=== PATIENT | male | born 1965 | race Two or more races ===

== ENCOUNTER 2018-05-15 18:08 | Inpatient (IN) | payer MEDICARE, OTHER ==
[~2018-05-15] VITALS: Ht 175.3 cm; Wt 113.4 kg
--- NOTE | 2018-05-15 18:16 | NUR ---
Dr Velasco at the bedside for MSE.
[2018-05-15] MEDS ORDERED: CALC-20 PO (18:23)
[2018-05-15] MEDS ORDERED: OMEG1CAP PO (18:23)
[2018-05-15] MEDS ORDERED: FENO145T PO (18:23)
[2018-05-15] MEDS ORDERED: GLYB5TAB7 PO (18:23)
[2018-05-15] MEDS ORDERED: DIVA500T2 PO (18:23)
[2018-05-15] MEDS ORDERED: SITA100T PO (18:23)
[2018-05-15] MEDS ORDERED: AMLO10TA4 PO (18:23)
[2018-05-15] MEDS ORDERED: OLAN20TA3 PO (18:23)
[2018-05-15] MEDS ORDERED: DOCU-141 PO (18:23)
[2018-05-15] MEDS ORDERED: TRAZ-214 PO (18:23)
[2018-05-15] MEDS ORDERED: LOSA25TA3 PO (18:23)
[2018-05-15] MEDS ORDERED: QUET200T PO (18:23)
[2018-05-15 18:39] LABS: *BILIRUBIN,URIN NEGATIVE (NEGATIVE); *BLOOD, URINE NEGATIVE (NEGATIVE); *CLARITY,URINE CLEAR (CLEAR); *COLOR,URINE LIGHT YELLOW (YELLOW); *KETONES,URINE NEGATIVE (NEGATIVE); *PROTEIN,URINE NEGATIVE (NEGATIVE); *UROBILINOGEN,URINE 0.2 E.U./dl (NORMAL); BASOPHILS # (AUTO) 0.1 K/uL (0.0-8.0); BASOPHILS % (AUTO) 1.2 % (0.0-2.0); EOSINOPHILS # (AUTO) 0.1 K/uL (0.0-0.7); EOSINOPHILS % (AUTO) 2.1 % (0.0-7.0); HEMATOCRIT 39.4 % (36.7-47.1); HEMOGLOBIN 13.9 g/dL (12.5-16.3); LEUKOCYTE ESTERASE ,URINE NEGATIVE (NEGATIVE); LYMPHOCYTES # (AUTO) 1.8 K/uL (20.0-40.0); LYMPHOCYTES % (AUTO) 27.3 % (20.5-51.5); MEAN CORPUSCULAR HEMOGLOBIN 31.1 uug (23.8-33.4); MEAN CORPUSCULAR HGB CONC 35 g/dL (32.5-36.3); MEAN CORPUSCULAR VOLUME 88.5 fL (73.0-96.2); MONOCYTES # (AUTO) 0.6 K/uL (2.0-10.0); MONOCYTES % (AUTO) 8.5 % (0.0-11.0); NEUTROPHILS % (AUTO) 60.9 % (38.5-71.5); NITRITE, URINE NEGATIVE (NEGATIVE); PLATELET COUNT (AUTO) 318 K/uL (152-348); RED BLOOD CELL COUNT(AUTO) 4.45 MIL/uL (4.06-5.63); UGLUCOSE NEGATIVE (NEGATIVE); WHITE BLOOD COUNT (AUTO) 6.6 K/uL (3.6-10.2)
[2018-05-15 18:47] LABS: CARBON DIOXIDE 28 mmol/L (21-32); CHLORIDE 101 mmol/L (98-107); GLUCOSE 155 mg/dL (74-106); POTASSIUM 3.4 mmol/L (3.5-5.1); SQUAMOUS EPITHELIAL CELL,UR FEW /HPF (NONE SEEN); UREA NITROGEN, BLOOD 8 mg/dL (7-18); WBC,URINE NONE SEEN /HPF (0-3)
[2018-05-15 18:52] LABS: ALANINE AMINOTRANSFERASE 29 U/L (16-63); ALKALINE PHOSPHATASE 49 U/L (50-136); ASPARTATE AMINOTRANSFERASE 10 U/L (15-37); BILIRUBIN,DIRECT < 0.1 mg/dL (0.0-0.2); BILIRUBIN,TOTAL 0.2 mg/dL (0.2-1.0); TOTAL PROTEIN, SERUM 8.3 g/dL (6.4-8.2)
[2018-05-15 18:53] LABS: ETHANOL < 3 MG/DL (0-0)
--- NOTE | 2018-05-15 18:53 | NUR ---
Paged Dr Garner for panel call.Awaiting call back. Pt is resting in bed, watching TV, NAD noted.
[2018-05-15 18:54] LABS: *AMPHETAMINE, URINE NEGATIVE (NEGATIVE); *BARBITURATE, URINE NEGATIVE (NEGATIVE); *CANNABINOID, URINE NEGATIVE (NEGATIVE); *COCCAINE, URINE NEGATIVE (NEGATIVE); *OPIATE, URINE NEGATIVE (NEGATIVE); *PHENCYCLIDINE SCREEN,URINE NEGATIVE (NEGATIVE)
--- NOTE | 2018-05-15 19:16 | NUR ---
Dr Terry spoke with Dr Garner.
[2018-05-15] MEDS ORDERED: MORPHINE SULFATE 2 MG/1 ML DISP.SYRIN IV PRN (19:30)
[2018-05-15] MEDS ORDERED: ONDANSETRON 4 MG/2 ML VIAL IV PRN (19:30)
[2018-05-15] MEDS ORDERED: ENALAPRILAT DIHYDRATE 1.25 MG/1 ML VIAL IV PRN (19:30)
[2018-05-15] MEDS ORDERED: ACETAMINOPHEN 325 MG TABLET PO PRN (19:30)
--- NOTE | 2018-05-15 19:48 | NUR ---
Patient refused to have MRSA narse to be done.
--- NOTE | 2018-05-15 20:00 | NUR ---
ADMITTED PATIENT IN TELE UNIT UNDER THE CARE OF DR. NASH, BELONGING LIST DONE.
--- NOTE | 2018-05-15 20:02 | NUR ---
Transfered to 2nd floor Tele via larry
[2018-05-15] MEDS ORDERED: MORPHINE SULFATE 4 MG/1 ML DISP.SYRIN IV PRN (20:15)
[2018-05-15 20:20] VITALS: BP 132/77
[2018-05-15] MEDS: TRAZODONE 100 MG TABLET PO SCH (20:54)
[2018-05-15] MEDS: DIVALPROEX 500 MG TABLET.DR PO SCH (20:55)
[2018-05-15] MEDS: OLANZAPINE 5 MG TABLET PO SCH (20:55)
[2018-05-15] MEDS: CALCIUM CARB/VITAMIN D 600-400 MG TABLET PO SCH (20:55)
[2018-05-15] MEDS ORDERED: QUETIAPINE FUMARATE 200 MG TABLET PO SCH (21:00)
--- NOTE | 2018-05-15 23:19 | NUR ---
PATIENT REFUSED TELE MONITOR AND PULLED OUT IV HEPLOCK, DR. NASH NOTIFIED WITH ORDER TO DISCONTINUE TELE MONITOR, AND IV HEPLOCK.
[2018-05-16 05:16] VITALS: BP 132/82
[2018-05-16] MEDS: PANTOPRAZOLE SODIUM 40 MG TABLET.DR PO SCH (06:03)
--- NOTE | 2018-05-16 06:07 | NUR ---
PATIENT SLEPT MOST OF THE NIGHT, NO SOB NO CHEST PAIN, NOTED, PATIENT REFUSED PROTONIX MEDICATIONS, REFUSED LAB WORKS ALSO, EXPLAININED THE RISK AND BENEFIT BUT STRONGLY REFUSED. PATIENT REFUSED TO EXPLAINED WHY HE DID NOT LIKE TAKING PROTONIX PO MEDICATIONS. WILL CONTINUE TO OFFER, ENDORSED TO NEXT SHIFT.
--- NOTE | 2018-05-16 07:15 | NUR ---
received report from restaurant shift supervisor nurse, patient in bed awake, no distress noted at this time, bed in low position, side rails up ;x2. bed alarm on.
[2018-05-16] MEDS ORDERED: Medication Not On Formulary EA (Calcium Carbonate/Vitamin D3 (Calcium + D 600 Mg Tablet) PO SCH (09:00)
[2018-05-16] MEDS: LINAGLIPTIN 5 MG TABLET PO SCH ×2 (09:00→09:13)
[2018-05-16] MEDS ORDERED: Medication Not On Formulary EA (Sitagliptin Phosphate (Januvia) 100 MG) PO SCH (09:00)
[2018-05-16] MEDS: DOCUSATE SODIUM 100 MG CAPSULE PO SCH ×2 (09:12→17:14)
[2018-05-16] MEDS: CALCIUM CARB/VITAMIN D 600-400 MG TABLET PO SCH ×2 (09:12→20:37)
[2018-05-16] MEDS: OMEGA-3 FATTY ACIDS/FISH OIL CAPSULE PO SCH (09:12)
[2018-05-16] MEDS: LOSARTAN POTASSIUM 25 MG TABLET PO SCH (09:13)
[2018-05-16] MEDS: DIVALPROEX 500 MG TABLET.DR PO SCH ×2 (09:13→20:37)
[2018-05-16] MEDS: OLANZAPINE 5 MG TABLET PO SCH ×2 (09:13→20:37)
[2018-05-16] MEDS: FENOFIBRATE NANOCRYSTALLIZED 145 MG TABLET PO SCH (09:13)
[2018-05-16] MEDS: glyBURIDE 5 MG TABLET PO SCH ×2 (09:13→17:00)
[2018-05-16] MEDS: AMLODIPINE 10 MG TABLET PO SCH (09:14)
[2018-05-16] MEDS ORDERED: INSULIN REGULAR, HUMAN 300 UNIT/3 ML VIAL SQ PRN (10:45)
[2018-05-16] MEDS ORDERED: DEXTROSE 50% 50 ML DISP.SYRIN IV PRN (10:45)
[2018-05-16 11:36] VITALS: BP 134/82
[2018-05-16] MEDS: BLOOD SUGAR DIAGNOSTIC 1 EACH STRIP VI SCH ×3 (12:15→20:54)
[2018-05-16 15:06] LABS: BASOPHILS % (AUTO) 0.8 % (0.0-2.0); EOSINOPHILS # (AUTO) 0.1 K/uL (0.0-0.7); EOSINOPHILS % (AUTO) 2.2 % (0.0-7.0); HEMATOCRIT 39.2 % (36.7-47.1); HEMOGLOBIN 13.6 g/dL (12.5-16.3); LYMPHOCYTES # (AUTO) 1.9 K/uL (20.0-40.0); LYMPHOCYTES % (AUTO) 30.1 % (20.5-51.5); MEAN CORPUSCULAR HEMOGLOBIN 30.5 uug (23.8-33.4); MEAN CORPUSCULAR HGB CONC 35 g/dL (32.5-36.3); MEAN CORPUSCULAR VOLUME 88.4 fL (73.0-96.2); MONOCYTES # (AUTO) 0.5 K/uL (2.0-10.0); MONOCYTES % (AUTO) 8.6 % (0.0-11.0); NEUTROPHILS # (AUTO) 3.7 K/uL (1.8-8.9); NEUTROPHILS % (AUTO) 58.3 % (38.5-71.5); PLATELET COUNT (AUTO) 309 K/uL (152-348); RED BLOOD CELL COUNT(AUTO) 4.44 MIL/uL (4.06-5.63); WHITE BLOOD COUNT (AUTO) 6.3 K/uL (3.6-10.2)
[2018-05-16 15:24] LABS: BILIRUBIN,TOTAL 0.3 mg/dL (0.2-1.0); MAGNESIUM 2.1 mg/dL (1.8-2.4); PHOSPHOROUS 3.5 mg/dL (2.5-4.9); POTASSIUM 3.7 mmol/L (3.5-5.1); TOTAL PROTEIN, SERUM 8.3 g/dL (6.4-8.2)
[2018-05-16 16:00] VITALS: BP 130/78
[2018-05-16] MEDS: METFORMIN HCL 500 MG TABLET PO SCH (17:15)
--- NOTE | 2018-05-16 17:57 | NUR ---
Patient has been uncooperative with care, refuses to take medication, ct scan and labs. Patient continues to have delusional thoughts and refuses to accept that he has diabetes, and does not want to take his medications. Patient states that his "People" have been notified and they are coming to pick him up. 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 Currently patient is up in the chair at bedside. No distress noted.
[2018-05-16 19:15] VITALS: BP 131/88
--- NOTE | 2018-05-16 19:40 | NUR ---
RECEIVED PATIENT IN BED ALERT, ORIENTED, NO COMPLAIN OF PAIN NOR DISCOMFORT, REPORTED BY AM NURSE THAT PATIENT STILL DELUSIONAL, UNCOOPERATIVE WITH CARE, REFUSED LAB WORKS, STAY IN HIS ROOM, WILL CONTINUE TO MONITOR.
[2018-05-16] MEDS: QUETIAPINE FUMARATE 200 MG TABLET PO SCH (20:38)
[2018-05-16] MEDS: TRAZODONE 100 MG TABLET PO SCH (20:48)
--- NOTE | 2018-05-16 21:00 | NUR ---
PATIENT AWAKE, TOOK ALL PO MEDS, ALLOWED TO DO ACCUCHECK, BUT REFUSED REGULAR INSULIN COVERAGE , EXPLAINED THE RISK AND BENEFITS OF NOT TAKING INSULIN, CONTINUE TO MONITOR. ,
[2018-05-17 03:20] VITALS: BP 116/76
[2018-05-17] MEDS: PANTOPRAZOLE SODIUM 40 MG TABLET.DR PO SCH (06:09)
[2018-05-17] MEDS: BLOOD SUGAR DIAGNOSTIC 1 EACH STRIP VI SCH ×4 (06:09→21:29)
[2018-05-17 06:49] LABS: BASOPHILS # (AUTO) 0.1 K/uL (0.0-8.0); EOSINOPHILS # (AUTO) 0.2 K/uL (0.0-0.7); EOSINOPHILS % (AUTO) 3.2 % (0.0-7.0); HEMATOCRIT 39.4 % (36.7-47.1); HEMOGLOBIN 13.6 g/dL (12.5-16.3); LYMPHOCYTES # (AUTO) 2.1 K/uL (20.0-40.0); MEAN CORPUSCULAR HEMOGLOBIN 30.7 uug (23.8-33.4); MEAN CORPUSCULAR HGB CONC 35 g/dL (32.5-36.3); MEAN CORPUSCULAR VOLUME 89.2 fL (73.0-96.2); MONOCYTES # (AUTO) 0.5 K/uL (2.0-10.0); MONOCYTES % (AUTO) 8.4 % (0.0-11.0); NEUTROPHILS # (AUTO) 3.3 K/uL (1.8-8.9); NEUTROPHILS % (AUTO) 53.4 % (38.5-71.5); PLATELET COUNT (AUTO) 316 K/uL (152-348); RED BLOOD CELL COUNT(AUTO) 4.42 MIL/uL (4.06-5.63); WHITE BLOOD COUNT (AUTO) 6.2 K/uL (3.6-10.2)
[2018-05-17 06:58] LABS: BILIRUBIN,TOTAL 0.3 mg/dL (0.2-1.0); CREATININE 1.2 mg/dL (0.6-1.3); MAGNESIUM 2.1 mg/dL (1.8-2.4); POTASSIUM 4.1 mmol/L (3.5-5.1); TOTAL PROTEIN, SERUM 7.9 g/dL (6.4-8.2)
[2018-05-17] MEDS: CALCIUM CARB/VITAMIN D 600-400 MG TABLET PO SCH ×2 (08:03→21:23)
[2018-05-17] MEDS: glyBURIDE 5 MG TABLET PO SCH ×2 (08:03→16:46)
[2018-05-17] MEDS: FENOFIBRATE NANOCRYSTALLIZED 145 MG TABLET PO SCH (08:03)
[2018-05-17] MEDS: METFORMIN HCL 500 MG TABLET PO SCH ×2 (08:03→17:29)
[2018-05-17] MEDS: DIVALPROEX 500 MG TABLET.DR PO SCH ×2 (08:03→21:23)
[2018-05-17] MEDS: OMEGA-3 FATTY ACIDS/FISH OIL CAPSULE PO SCH (08:03)
[2018-05-17] MEDS: LINAGLIPTIN 5 MG TABLET PO SCH (08:04)
[2018-05-17] MEDS: AMLODIPINE 10 MG TABLET PO SCH (08:04)
[2018-05-17] MEDS: DOCUSATE SODIUM 100 MG CAPSULE PO SCH ×2 (08:04→16:46)
[2018-05-17] MEDS: LOSARTAN POTASSIUM 25 MG TABLET PO SCH (08:04)
[2018-05-17] MEDS: OLANZAPINE 5 MG TABLET PO SCH ×2 (08:05→21:23)
[2018-05-17 09:00] LABS: THYROID STIMULATING HORMONE 0.347 mIU/mL (0.358-3.740)
--- NOTE | 2018-05-17 09:54 | NUR ---
SEEN BY DR MORENO SEE NOTES
--- NOTE | 2018-05-17 09:55 | NUR ---
RECEIVED PATIENT SITTING ON CHAIR WATCHING TV, ANSWERING QUESTIONS APPROPRIATELY, NO SS OF HALLUCINATION OR DELIRIUM. TOOK MEDS WILLINGLY ATE 100% OF BREAKFAST. CLOSELY MONITORED Addendum: 05/17/18 at 1001 by MARGARET MORRISON RN ERROR; NOTES FROM 08 CHANGE OF SHIFT
--- NOTE | 2018-05-17 11:18 | NUR ---
BLOOD SUGAR BY ACCUCHEK 177 PATIENT REFUSED INSULIN SLIDING SCALE
[2018-05-17 11:20] VITALS: BP 129/80
[2018-05-17 15:56] VITALS: BP 122/79
[2018-05-17 19:00] VITALS: BP 131/83
--- NOTE | 2018-05-17 19:30 | NUR ---
Patient received in stable condition at start of shift. No acute distress. Vital signs within range at beginning of shift. Pertinent assessment completed. Patient is alert, awake, verbally responsive, noted to be anxious & irritable. Affect is labile. Patient also appears disheveled. Sitting at the bedside on chair upon assessment & talking to his shoe & stating, "I'm talking to my daughter on the phone". Room checked for safety at start of shift. Bed placed in low position, locked, x2 side rails up. Call light in reach. Will continue to monitor through shift.
[2018-05-17] MEDS: QUETIAPINE FUMARATE 200 MG TABLET PO SCH (21:23)
[2018-05-17] MEDS: TRAZODONE 100 MG TABLET PO SCH (21:23)
[2018-05-18 04:00] VITALS: BP 115/74
[2018-05-18] MEDS: PANTOPRAZOLE SODIUM 40 MG TABLET.DR PO SCH (06:12)
--- NOTE | 2018-05-18 06:15 | NUR ---
Patient slept well during the shift. Vital signs within normal limits. No agitation noted during the night. Patient remained cooperative & took all medications as ordered. Refuses insulin this AM. Explained risks & benefits. Blood sugar at 141. No signs of hyperglycemia noted. All needs attended to. Safety measures implemented. Call light within reach. Will endorse to oncoming shift.
[2018-05-18] MEDS: BLOOD SUGAR DIAGNOSTIC 1 EACH STRIP VI SCH ×2 (06:33→11:56)
[2018-05-18 06:47] LABS: BASOPHILS # (AUTO) 0.1 K/uL (0.0-8.0); BASOPHILS % (AUTO) 0.9 % (0.0-2.0); EOSINOPHILS # (AUTO) 0.2 K/uL (0.0-0.7); HEMATOCRIT 38.2 % (36.7-47.1); HEMOGLOBIN 13.3 g/dL (12.5-16.3); LYMPHOCYTES % (AUTO) 29.9 % (20.5-51.5); MEAN CORPUSCULAR HEMOGLOBIN 30.5 uug (23.8-33.4); MEAN CORPUSCULAR HGB CONC 35 g/dL (32.5-36.3); MEAN CORPUSCULAR VOLUME 87.7 fL (73.0-96.2); MONOCYTES # (AUTO) 0.5 K/uL (2.0-10.0); MONOCYTES % (AUTO) 7.5 % (0.0-11.0); NEUTROPHILS # (AUTO) 3.8 K/uL (1.8-8.9); NEUTROPHILS % (AUTO) 58.7 % (38.5-71.5); PLATELET COUNT (AUTO) 304 K/uL (152-348); RED BLOOD CELL COUNT(AUTO) 4.35 MIL/uL (4.06-5.63); WHITE BLOOD COUNT (AUTO) 6.6 K/uL (3.6-10.2)
[2018-05-18 06:55] LABS: CREATININE 1.1 mg/dL (0.6-1.3); MAGNESIUM 2.1 mg/dL (1.8-2.4); PHOSPHOROUS 3.6 mg/dL (2.5-4.9); POTASSIUM 3.7 mmol/L (3.5-5.1)
[2018-05-18] MEDS: METFORMIN HCL 500 MG TABLET PO SCH (08:09)
[2018-05-18] MEDS: DOCUSATE SODIUM 100 MG CAPSULE PO SCH ×2 (08:09→08:13)
[2018-05-18] MEDS: CALCIUM CARB/VITAMIN D 600-400 MG TABLET PO SCH (08:09)
[2018-05-18] MEDS: LINAGLIPTIN 5 MG TABLET PO SCH (08:10)
[2018-05-18] MEDS: OMEGA-3 FATTY ACIDS/FISH OIL CAPSULE PO SCH (08:10)
[2018-05-18] MEDS: glyBURIDE 5 MG TABLET PO SCH (08:10)
[2018-05-18] MEDS: LOSARTAN POTASSIUM 25 MG TABLET PO SCH (08:10)
[2018-05-18] MEDS: DIVALPROEX 500 MG TABLET.DR PO SCH (08:10)
[2018-05-18] MEDS: AMLODIPINE 10 MG TABLET PO SCH (08:10)
[2018-05-18] MEDS: FENOFIBRATE NANOCRYSTALLIZED 145 MG TABLET PO SCH (08:11)
[2018-05-18] MEDS: OLANZAPINE 5 MG TABLET PO SCH (08:11)
[2018-05-18 11:22] VITALS: BP 121/72
[2018-05-18] MEDS ORDERED: INSU100V28 SQ (14:48)
[2018-05-18] MEDS ORDERED: PANT40TA2 PO (14:48)
[2018-05-18] MEDS ORDERED: LINA5TAB PO (14:48)
[2018-05-18] MEDS ORDERED: METF-440 PO (14:48)
[2018-05-18] MEDS ORDERED: GLYB5TAB7 PO (14:48)
[2018-05-18] MEDS ORDERED: Blood Sugar Diagnostic VI (14:48)
[2018-05-18] MEDS ORDERED: ACET325T53 PO (14:48)
[2018-05-18] MEDS ORDERED: OLAN5TAB3 PO (14:48)
[2018-05-18] MEDS ORDERED: HYDR-3326 PO (14:48)
[2018-05-18] MEDS ORDERED: DEXT50DI8 IV (14:48)
[2018-05-18] MEDS ORDERED: QUET200T PO (14:48)
[2018-05-18 15:34] VITALS: BP 121/73
--- NOTE | 2018-05-18 16:22 | NUR ---
TRANSFER TO [facility]
[2018-05-19] MEDS ORDERED: DIVA500T2 PO (09:28)
[2018-05-19] MEDS ORDERED: TRAZ300T2 PO (09:28)
== END 2018-05-18 16:30 | DRG 885 ==
LOC: ER 18:10 → TELE 19:49 → MED 23:27
PROVIDERS: ADMIT Internal Medicine; ATTEND Internal Medicine
DX: F25.0 Schizoaffective disorder, bipolar type (principal); E11.65 Type 2 diabetes mellitus with hyperglycemia; E87.6 Hypokalemia; Z91.14 Patient's other noncompliance with medication regimen; Z79.84 Long term (current) use of oral hypoglycemic drugs; E66.9 Obesity, unspecified; Z68.36 Body mass index [BMI] 36.0-36.9, adult; I10 Essential (primary) hypertension; F17.210 Nicotine dependence, cigarettes, uncomplicated; E88.09 Other disorders of plasma-protein metabolism, not elsewhere classified; E78.5 Hyperlipidemia, unspecified; E78.1 Pure hyperglyceridemia; Z79.899 Other long term (current) drug therapy; Z88.0 Allergy status to penicillin; F41.9 Anxiety disorder, unspecified
CPT/HCPCS: 36415; 70030-TC; 80164; 80307; 83735; 84100; 84443; 84481; 85025; 93005; A4663; G0378; G0480; J1815

== ENCOUNTER 2018-05-18 17:44 | Inpatient (IN) | payer MEDICARE ==
[~2018-05-18] VITALS: Ht 175.3 cm; Wt 117.9 kg
[~2018-05-18 17:44] MED LIST: ACET325T53 PO; AMLO10TA4 PO; Blood Sugar Diagnostic VI; CALC-20 PO; DEXT50DI8 IV; DIVA500T2 PO; DOCU-141 PO; FENO145T PO; GLYB5TAB7 PO; HYDR-3326 PO; INSU100V28 SQ; LINA5TAB PO; LOSA25TA3 PO; METF-440 PO; OLAN20TA3 PO; OLAN5TAB3 PO; OMEG1CAP PO; PANT40TA2 PO; QUET200T PO; SITA100T PO; TRAZ-214 PO
[2018-05-18] MEDS ORDERED: TEMAZEPAM 7.5 MG CAPSULE PO PRN (18:00)
[2018-05-18] MEDS ORDERED: LORAZEPAM 0.5 MG TABLET PO PRN (18:00)
[2018-05-18] MEDS ORDERED: MAGNESIUM HYDROXIDE 30 ML LIQUID UDC PO PRN (18:00)
[2018-05-18] MEDS ORDERED: ACETAMINOPHEN 325 MG TABLET PO PRN (18:00)
[2018-05-18] MEDS ORDERED: MAG HYDROX/AL HYDROX/SIMETH 30 ML LIQUID UDC PO PRN (18:00)
[2018-05-18] MEDS ORDERED: HALOPERIDOL LACTATE 5 MG/1 ML VIAL IM ONE (19:15)
[2018-05-18] MEDS ORDERED: diphenhydrAMINE 50 MG/1 ML VIAL IM ONE (19:15)
[2018-05-18] MEDS ORDERED: LORAZEPAM 2 MG/1 ML VIAL IM ONE (19:15)
[2018-05-18 19:28] VITALS: BP 140/80
--- NOTE | 2018-05-18 19:30 | NUR ---
Received patient from day shift nurse. Patient was previously a Med/Surg patient and now admitted as a GPS Overflow under Dr. De Leon. Patient in stable condition with no acute distress. Vital signs within range at start of shift. Patient on a 5150 Hold starting 05/18/18 at 1337 & ending 05/21/18 at 1337. Explained to patient that he must stay on the unit because he is on a hold. Patient was refusing at first but now understands that he must stay until hold is over. Per day shift RN, refused to sign most documents & answer assessment questions. Patient denies S.I. & has no active plan upon assessment. Noted to be delusional, irritable, & anxious. Patient at the bedside sitting carrying his shoe to his face & "talking on the phone". 1:1 sitter at the bedside. Room checked for safety at start of shift. Contraband removed from room & collected. Will continue to monitor through shift.
--- NOTE | 2018-05-19 06:11 | NUR ---
Blood sugar this AM at 130. No s/s of hyperglycemia noted.
--- NOTE | 2018-05-19 06:36 | NUR ---
Patient slept well during the night total of 8.5 hours. No agitation noted. Compliant with care. 1:1 sitter at the bedside. No active S.I. All needs attended to promptly. Medications administered per MD order. Safety measures implemented. Will endorse to oncoming shift.
[2018-05-19 08:00] VITALS: BP 147/83
[2018-05-19] MEDS: DIVALPROEX 500 MG TABLET.DR PO SCH (09:00)
[2018-05-19] MEDS ORDERED: DIVA500T2 PO (09:28)
[2018-05-19] MEDS ORDERED: TRAZ300T2 PO (09:28)
[2018-05-19] MEDS ORDERED: INSULIN REGULAR, HUMAN 300 UNIT/3 ML VIAL SQ PRN (11:30)
[2018-05-19] MEDS ORDERED: DEXTROSE 50% 50 ML DISP.SYRIN IV PRN (11:30)
[2018-05-19] MEDS ORDERED: HYDROCODONE/APAP 5-325MG TABLET PO PRN (11:30)
[2018-05-19] MEDS: BLOOD SUGAR DIAGNOSTIC 1 EACH STRIP VI SCH ×3 (11:34→20:49)
[2018-05-19] MEDS: LINAGLIPTIN 5 MG TABLET PO SCH (11:50)
[2018-05-19] MEDS: LOSARTAN POTASSIUM 25 MG TABLET PO SCH (11:50)
[2018-05-19] MEDS: AMLODIPINE 10 MG TABLET PO SCH (11:50)
[2018-05-19] MEDS: FENOFIBRATE NANOCRYSTALLIZED 145 MG TABLET PO SCH (11:50)
[2018-05-19] MEDS: DOCUSATE SODIUM 100 MG CAPSULE PO SCH (16:05)
--- NOTE | 2018-05-19 16:30 | NUR ---
pt is holding his shoes near his ear and talking to him self ,pt is thinking his shoes is telephone.reorient the pt ,sitter at bed side
[2018-05-19] MEDS: glyBURIDE 5 MG TABLET PO SCH (17:00)
[2018-05-19] MEDS ORDERED: Medication Not On Formulary EA (Calcium Carbonate/Vitamin D3 (Calcium + D 600 Mg Tablet) PO SCH (17:00)
--- NOTE | 2018-05-19 18:13 | NUR ---
TRANSFER THE PT TO U VIA WHEEL CHAIR IN STABLE CONDITION
[2018-05-19 20:15] VITALS: BP 141/86
[2018-05-19] MEDS: QUETIAPINE FUMARATE 100 MG TABLET PO SCH (20:30)
[2018-05-19] MEDS: CALCIUM CARB/VITAMIN D 600-400 MG TABLET PO SCH (20:30)
[2018-05-19] MEDS: TRAZODONE 50 MG TABLET PO SCH (20:31)
[2018-05-19] MEDS ORDERED: DIVALPROEX 500 MG TABLET.DR PO SCH (21:00)
[2018-05-20] MEDS: BLOOD SUGAR DIAGNOSTIC 1 EACH STRIP VI SCH ×4 (06:31→20:47)
[2018-05-20] MEDS: PANTOPRAZOLE SODIUM 40 MG TABLET.DR PO SCH ×2 (06:32→08:19)
[2018-05-20 07:30] VITALS: BP 141/78
[2018-05-20] MEDS: glyBURIDE 5 MG TABLET PO SCH ×2 (08:00→18:00)
[2018-05-20] MEDS: OMEGA-3 FATTY ACIDS/FISH OIL CAPSULE PO SCH (08:18)
[2018-05-20] MEDS: LOSARTAN POTASSIUM 25 MG TABLET PO SCH (08:19)
[2018-05-20] MEDS: AMLODIPINE 10 MG TABLET PO SCH (08:20)
[2018-05-20] MEDS: CALCIUM CARB/VITAMIN D 600-400 MG TABLET PO SCH ×2 (08:20→20:47)
[2018-05-20] MEDS: FENOFIBRATE NANOCRYSTALLIZED 145 MG TABLET PO SCH (08:20)
[2018-05-20] MEDS: DOCUSATE SODIUM 100 MG CAPSULE PO SCH ×2 (08:20→16:27)
[2018-05-20] MEDS: LINAGLIPTIN 5 MG TABLET PO SCH (08:21)
[2018-05-20] MEDS: DIVALPROEX 500 MG TABLET.DR PO SCH ×2 (09:00→20:47)
[2018-05-20 16:03] VITALS: BP 117/69
[2018-05-20] MEDS: OLANZAPINE ZYDIS 5 MG TAB.RAPDIS PO SCH ×2 (16:07→16:29)
--- NOTE | 2018-05-20 17:58 | NUR ---
patient is paranoia and delusional responding to internal stimuli ,refused all Acc-Check , compliant with amost of medication ,will continue close monitoring.
[2018-05-20 20:00] VITALS: BP 133/80
[2018-05-20] MEDS: QUETIAPINE FUMARATE 100 MG TABLET PO SCH (20:46)
[2018-05-20] MEDS: TRAZODONE 50 MG TABLET PO SCH (20:47)
--- NOTE | 2018-05-21 06:14 | NUR ---
GPS: Remain paranoia and delusional ,noted responding to internal stimuli ,refused all Acc-Check , compliant with all medication ,will continue close monitoring.refused shower.
[2018-05-21] MEDS: BLOOD SUGAR DIAGNOSTIC 1 EACH STRIP VI SCH ×4 (06:50→20:17)
[2018-05-21 07:30] VITALS: BP 143/83
[2018-05-21] MEDS: DOCUSATE SODIUM 100 MG CAPSULE PO SCH ×2 (09:00→16:20)
[2018-05-21] MEDS: FENOFIBRATE NANOCRYSTALLIZED 145 MG TABLET PO SCH (09:24)
[2018-05-21] MEDS: LINAGLIPTIN 5 MG TABLET PO SCH (09:25)
[2018-05-21] MEDS: LOSARTAN POTASSIUM 25 MG TABLET PO SCH (09:25)
[2018-05-21] MEDS: AMLODIPINE 10 MG TABLET PO SCH (09:25)
[2018-05-21] MEDS: CALCIUM CARB/VITAMIN D 600-400 MG TABLET PO SCH ×2 (09:25→20:13)
[2018-05-21] MEDS: DIVALPROEX 500 MG TABLET.DR PO SCH ×2 (09:25→20:23)
[2018-05-21] MEDS: glyBURIDE 5 MG TABLET PO SCH ×2 (09:25→17:04)
[2018-05-21] MEDS: OMEGA-3 FATTY ACIDS/FISH OIL CAPSULE PO SCH (09:28)
[2018-05-21] MEDS: OLANZAPINE ZYDIS 5 MG TAB.RAPDIS PO SCH ×2 (09:29→17:04)
--- NOTE | 2018-05-21 12:57 | NUR ---
Initial Discharge Note: Per discharge planners assessment ([facility]) pt apparently was living in a B&[facility] owned by Dominga [ ; ; [address] [place] [id number]]. JASMINE spoke with Dominga and confirmed that once pt is medically and psychiatrically cleared she will re-admit him to facility. Social work will contact pts father and collaborate with treatment team for safe discharge.
[2018-05-21 16:58] VITALS: BP 141/87
[2018-05-21] MEDS: QUETIAPINE FUMARATE 100 MG TABLET PO SCH (20:13)
[2018-05-21] MEDS: TRAZODONE 50 MG TABLET PO SCH (20:13)
[2018-05-21 20:47] VITALS: BP 127/82
--- NOTE | 2018-05-22 06:04 | NUR ---
GPS: Remain paranoia and delusional ,noted responding to internal stimuli ,refused all Acc-Check , compliant with all medication ,will continue close monitoring. slept 7.5 hrs through the night.
[2018-05-22] MEDS: PANTOPRAZOLE SODIUM 40 MG TABLET.DR PO SCH (06:08)
[2018-05-22] MEDS: BLOOD SUGAR DIAGNOSTIC 1 EACH STRIP VI SCH ×4 (06:51→20:31)
[2018-05-22 07:30] VITALS: BP 122/86
[2018-05-22] MEDS: DIVALPROEX 500 MG TABLET.DR PO SCH ×2 (09:58→20:21)
[2018-05-22] MEDS: FENOFIBRATE NANOCRYSTALLIZED 145 MG TABLET PO SCH (09:58)
[2018-05-22] MEDS: OMEGA-3 FATTY ACIDS/FISH OIL CAPSULE PO SCH (09:58)
[2018-05-22] MEDS: LOSARTAN POTASSIUM 25 MG TABLET PO SCH (09:59)
[2018-05-22] MEDS: OLANZAPINE ZYDIS 5 MG TAB.RAPDIS PO SCH ×2 (09:59→17:24)
[2018-05-22] MEDS: DOCUSATE SODIUM 100 MG CAPSULE PO SCH ×2 (09:59→17:00)
[2018-05-22] MEDS: AMLODIPINE 10 MG TABLET PO SCH (09:59)
[2018-05-22] MEDS: CALCIUM CARB/VITAMIN D 600-400 MG TABLET PO SCH ×2 (10:11→20:21)
[2018-05-22] MEDS: glyBURIDE 5 MG TABLET PO SCH ×2 (10:12→17:24)
[2018-05-22] MEDS: LINAGLIPTIN 5 MG TABLET PO SCH (10:12)
--- NOTE | 2018-05-22 16:15 | NUR ---
Firearms Report: Electric Tool Repairer completed and submitted [employer]arms Report for 5250 GD certification.
[2018-05-22 16:18] VITALS: BP 116/67
[2018-05-22 19:30] VITALS: BP 133/79
[2018-05-22] MEDS: QUETIAPINE FUMARATE 100 MG TABLET PO SCH (20:21)
[2018-05-22] MEDS: TRAZODONE 50 MG TABLET PO SCH (20:22)
[2018-05-23] MEDS: PANTOPRAZOLE SODIUM 40 MG TABLET.DR PO SCH (06:09)
--- NOTE | 2018-05-23 06:13 | NUR ---
GPS: GPS: Remain paranoia and delusional ,Cooperative with care. noted responding to internal stimuli , compliant with all medication ,slept 7.5 hrs through the night. will continue close monitoring.refused shower.
[2018-05-23] MEDS: BLOOD SUGAR DIAGNOSTIC 1 EACH STRIP VI SCH ×3 (06:31→17:56)
[2018-05-23 07:30] VITALS: BP 113/71
[2018-05-23] MEDS: DIVALPROEX 500 MG TABLET.DR PO SCH ×2 (08:29→20:09)
[2018-05-23] MEDS: OMEGA-3 FATTY ACIDS/FISH OIL CAPSULE PO SCH (08:29)
[2018-05-23] MEDS: FENOFIBRATE NANOCRYSTALLIZED 145 MG TABLET PO SCH (08:29)
[2018-05-23] MEDS: OLANZAPINE ZYDIS 5 MG TAB.RAPDIS PO SCH ×2 (08:32→17:56)
[2018-05-23] MEDS: LINAGLIPTIN 5 MG TABLET PO SCH (08:33)
[2018-05-23] MEDS: LOSARTAN POTASSIUM 25 MG TABLET PO SCH (08:39)
[2018-05-23] MEDS: glyBURIDE 5 MG TABLET PO SCH ×2 (08:40→18:22)
[2018-05-23] MEDS: DOCUSATE SODIUM 100 MG CAPSULE PO SCH ×2 (08:42→17:00)
--- NOTE | 2018-05-23 11:08 | NUR ---
Discharge Planning Note: Mine Inspector attempted to contact Alisha, the collection systems administrator of patient's B&C, to discuss discharge planning [ : mailbox full; left a message for return call]. SW also attempted to contact patient's father, Osmani Osorio ([phone]) to gather further information. No answer, and SW left message for return call. ANGELA will continue to follow-up with both Alisha and pt's father for discharge planning.
[2018-05-23] MEDS: AMLODIPINE 10 MG TABLET PO SCH (12:34)
[2018-05-23] MEDS: CALCIUM CARB/VITAMIN D 600-400 MG TABLET PO SCH ×2 (12:35→20:08)
[2018-05-23 16:21] VITALS: BP 140/83
[2018-05-23] MEDS ORDERED: DEXTROSE 50% 50 ML DISP.SYRIN IV PRN (19:07)
[2018-05-23] MEDS ORDERED: INSULIN REGULAR, HUMAN 300 UNIT/3 ML VIAL SQ PRN (19:08)
[2018-05-23 20:00] VITALS: BP 130/82
[2018-05-23] MEDS: QUETIAPINE FUMARATE 100 MG TABLET PO SCH (20:09)
[2018-05-23] MEDS: TRAZODONE 50 MG TABLET PO SCH (20:09)
[2018-05-24] MEDS ORDERED: INSULIN REGULAR, HUMAN 300 UNIT/3 ML VIAL SQ PRN ×2 (01:00→07:30)
[2018-05-24] MEDS ORDERED: DEXTROSE 50% 50 ML DISP.SYRIN IV PRN ×2 (01:00→07:30)
[2018-05-24] MEDS: PANTOPRAZOLE SODIUM 40 MG TABLET.DR PO SCH (06:11)
[2018-05-24] MEDS: BLOOD SUGAR DIAGNOSTIC 1 EACH STRIP VI SCH ×2 (06:38→17:26)
--- NOTE | 2018-05-24 06:40 | NUR ---
GPS: Pt.refused accucheck at this time despite explanation of importance. Risks vs benefits explained x3 but continues to refuse.
[2018-05-24] MEDS ORDERED: BLOOD SUGAR DIAGNOSTIC 1 EACH STRIP VI SCH ×2 (07:30→09:00)
[2018-05-24] MEDS: DOCUSATE SODIUM 100 MG CAPSULE PO SCH ×2 (08:03→17:21)
[2018-05-24] MEDS: OMEGA-3 FATTY ACIDS/FISH OIL CAPSULE PO SCH (08:04)
[2018-05-24] MEDS: OLANZAPINE ZYDIS 5 MG TAB.RAPDIS PO SCH ×2 (08:04→17:21)
[2018-05-24] MEDS: LOSARTAN POTASSIUM 25 MG TABLET PO SCH (08:04)
[2018-05-24] MEDS: FENOFIBRATE NANOCRYSTALLIZED 145 MG TABLET PO SCH (08:04)
[2018-05-24] MEDS: CALCIUM CARB/VITAMIN D 600-400 MG TABLET PO SCH ×2 (08:04→20:06)
[2018-05-24] MEDS: AMLODIPINE 10 MG TABLET PO SCH (08:05)
[2018-05-24] MEDS: DIVALPROEX 500 MG TABLET.DR PO SCH ×2 (08:05→20:06)
[2018-05-24] MEDS: LINAGLIPTIN 5 MG TABLET PO SCH (08:21)
[2018-05-24] MEDS: glyBURIDE 5 MG TABLET PO SCH ×2 (08:21→17:23)
[2018-05-24 10:40] VITALS: BP 120/76
--- NOTE | 2018-05-24 10:45 | NUR ---
Discharge Planning Note: Spoke with patient's father, Osmani Davidson Sr. ([phone]) to collect collateral information. Per pt's father, the patient has been a long-time resident at [facility] [[address] [place] [address]; [phone]] and that the facility is working on getting him conserved by the Public Guardian's Office. Per father, the patient should return to that facility when ready for discharge. Placed call to Jacqueline in Admissions at [facility] ([phone]) to confirm that patient is a resident of that facility. Jacqueline confirmed all information that pt's father disclosed and stated that the patient is welcome to return when ready for discharge. Per Jacqueline, the patient is still in the process of being conserved and does not have an assigned Public Guardian at this time. SW will continue to follow-up with pt and facility when patient is ready for discharge.
[2018-05-24 15:55] VITALS: BP 119/68
[2018-05-24] MEDS: TRAZODONE 50 MG TABLET PO SCH (20:06)
[2018-05-24] MEDS: QUETIAPINE FUMARATE 100 MG TABLET PO SCH (20:06)
[2018-05-24 22:24] VITALS: BP 131/85
[2018-05-25] MEDS: PANTOPRAZOLE SODIUM 40 MG TABLET.DR PO SCH (06:05)
[2018-05-25] MEDS: BLOOD SUGAR DIAGNOSTIC 1 EACH STRIP VI SCH ×3 (06:31→17:05)
[2018-05-25 07:30] VITALS: BP 119/70
[2018-05-25] MEDS: CALCIUM CARB/VITAMIN D 600-400 MG TABLET PO SCH ×2 (08:20→20:13)
[2018-05-25] MEDS: FENOFIBRATE NANOCRYSTALLIZED 145 MG TABLET PO SCH (08:20)
[2018-05-25] MEDS: DOCUSATE SODIUM 100 MG CAPSULE PO SCH ×2 (08:20→17:00)
[2018-05-25] MEDS: DIVALPROEX 500 MG TABLET.DR PO SCH ×2 (08:20→20:13)
[2018-05-25] MEDS: OMEGA-3 FATTY ACIDS/FISH OIL CAPSULE PO SCH (08:20)
[2018-05-25] MEDS: OLANZAPINE ZYDIS 5 MG TAB.RAPDIS PO SCH ×2 (08:20→17:10)
[2018-05-25] MEDS: LOSARTAN POTASSIUM 25 MG TABLET PO SCH (08:21)
[2018-05-25] MEDS: AMLODIPINE 10 MG TABLET PO SCH (08:21)
[2018-05-25] MEDS: LINAGLIPTIN 5 MG TABLET PO SCH (08:22)
[2018-05-25] MEDS: glyBURIDE 5 MG TABLET PO SCH ×2 (08:22→17:10)
[2018-05-25 15:26] VITALS: BP 116/65
[2018-05-25] MEDS: QUETIAPINE FUMARATE 100 MG TABLET PO SCH (20:13)
[2018-05-25] MEDS: TRAZODONE 50 MG TABLET PO SCH (20:14)
[2018-05-25 20:35] VITALS: BP 137/76
[2018-05-26] MEDS: PANTOPRAZOLE SODIUM 40 MG TABLET.DR PO SCH (06:06)
--- NOTE | 2018-05-26 06:23 | NUR ---
GPS: REMAIN CALM AND COOPERATIVE WITH MEDICATIONS AND CARE. SLEPT 7:30 HRS THROUGH THE NIGHT.RESTING IN BED. NO AGITATION NOTED CONTINUE PLAN OF CARE.
[2018-05-26] MEDS: BLOOD SUGAR DIAGNOSTIC 1 EACH STRIP VI SCH ×2 (06:30→16:30)
[2018-05-26 07:30] VITALS: BP 116/73
[2018-05-26] MEDS: FENOFIBRATE NANOCRYSTALLIZED 145 MG TABLET PO SCH (08:18)
[2018-05-26] MEDS: CALCIUM CARB/VITAMIN D 600-400 MG TABLET PO SCH ×2 (08:18→20:12)
[2018-05-26] MEDS: OMEGA-3 FATTY ACIDS/FISH OIL CAPSULE PO SCH (08:18)
[2018-05-26] MEDS: OLANZAPINE ZYDIS 5 MG TAB.RAPDIS PO SCH ×2 (08:18→16:07)
[2018-05-26] MEDS: DIVALPROEX 500 MG TABLET.DR PO SCH ×2 (08:19→20:12)
[2018-05-26] MEDS: glyBURIDE 5 MG TABLET PO SCH ×2 (08:19→17:01)
[2018-05-26] MEDS: LINAGLIPTIN 5 MG TABLET PO SCH (08:19)
[2018-05-26] MEDS: LOSARTAN POTASSIUM 25 MG TABLET PO SCH (08:21)
[2018-05-26] MEDS: AMLODIPINE 10 MG TABLET PO SCH (08:21)
[2018-05-26] MEDS: DOCUSATE SODIUM 100 MG CAPSULE PO SCH ×2 (08:35→16:07)
[2018-05-26 15:40] VITALS: BP 122/78
[2018-05-26] MEDS: TRAZODONE 50 MG TABLET PO SCH (20:12)
[2018-05-26] MEDS: QUETIAPINE FUMARATE 100 MG TABLET PO SCH (20:12)
[2018-05-26 20:40] VITALS: BP 118/76
[2018-05-27] MEDS: PANTOPRAZOLE SODIUM 40 MG TABLET.DR PO SCH (06:17)
[2018-05-27] MEDS: BLOOD SUGAR DIAGNOSTIC 1 EACH STRIP VI SCH ×2 (06:31→16:30)
[2018-05-27 07:24] LABS: BASOPHILS # (AUTO) 0.1 K/uL (0.0-8.0); BASOPHILS % (AUTO) 1.2 % (0.0-2.0); EOSINOPHILS # (AUTO) 0.1 K/uL (0.0-0.7); EOSINOPHILS % (AUTO) 2.8 % (0.0-7.0); HEMATOCRIT 36.4 % (36.7-47.1); HEMOGLOBIN 12.8 g/dL (12.5-16.3); LYMPHOCYTES # (AUTO) 1.7 K/uL (20.0-40.0); MEAN CORPUSCULAR HEMOGLOBIN 31.3 uug (23.8-33.4); MEAN CORPUSCULAR HGB CONC 35 g/dL (32.5-36.3); MEAN CORPUSCULAR VOLUME 88.8 fL (73.0-96.2); MONOCYTES # (AUTO) 0.5 K/uL (2.0-10.0); MONOCYTES % (AUTO) 9.4 % (0.0-11.0); NEUTROPHILS # (AUTO) 2.7 K/uL (1.8-8.9); NEUTROPHILS % (AUTO) 53.6 % (38.5-71.5); PLATELET COUNT (AUTO) 274 K/uL (152-348); WHITE BLOOD COUNT (AUTO) 5.1 K/uL (3.6-10.2)
[2018-05-27 07:30] VITALS: BP 124/72
[2018-05-27 07:48] LABS: BILIRUBIN,TOTAL 0.2 mg/dL (0.2-1.0); CREATININE 1.2 mg/dL (0.6-1.3); PHOSPHOROUS 3.4 mg/dL (2.5-4.9); TOTAL PROTEIN, SERUM 7.7 g/dL (6.4-8.2)
[2018-05-27] MEDS: DIVALPROEX 500 MG TABLET.DR PO SCH ×2 (08:52→20:12)
[2018-05-27] MEDS: CALCIUM CARB/VITAMIN D 600-400 MG TABLET PO SCH ×2 (08:52→20:12)
[2018-05-27] MEDS: FENOFIBRATE NANOCRYSTALLIZED 145 MG TABLET PO SCH (08:52)
[2018-05-27] MEDS: OMEGA-3 FATTY ACIDS/FISH OIL CAPSULE PO SCH (08:52)
[2018-05-27] MEDS: OLANZAPINE ZYDIS 5 MG TAB.RAPDIS PO SCH ×2 (08:52→16:51)
[2018-05-27] MEDS: AMLODIPINE 10 MG TABLET PO SCH (08:53)
[2018-05-27] MEDS: LOSARTAN POTASSIUM 25 MG TABLET PO SCH (08:53)
[2018-05-27] MEDS: DOCUSATE SODIUM 100 MG CAPSULE PO SCH ×2 (08:53→16:52)
[2018-05-27] MEDS: LINAGLIPTIN 5 MG TABLET PO SCH (08:55)
[2018-05-27] MEDS: glyBURIDE 5 MG TABLET PO SCH ×2 (08:55→17:05)
[2018-05-27 16:41] VITALS: BP 108/58
[2018-05-27] MEDS: TRAZODONE 50 MG TABLET PO SCH (20:12)
[2018-05-27] MEDS: QUETIAPINE FUMARATE 100 MG TABLET PO SCH (20:12)
[2018-05-27 20:35] VITALS: BP 130/80
[2018-05-28] MEDS: PANTOPRAZOLE SODIUM 40 MG TABLET.DR PO SCH (06:20)
[2018-05-28] MEDS: BLOOD SUGAR DIAGNOSTIC 1 EACH STRIP VI SCH ×2 (06:33→16:30)
[2018-05-28 07:30] VITALS: BP 131/71
[2018-05-28] MEDS: DIVALPROEX 500 MG TABLET.DR PO SCH (08:19)
[2018-05-28] MEDS: FENOFIBRATE NANOCRYSTALLIZED 145 MG TABLET PO SCH (08:19)
[2018-05-28] MEDS: OMEGA-3 FATTY ACIDS/FISH OIL CAPSULE PO SCH (08:19)
[2018-05-28] MEDS: LINAGLIPTIN 5 MG TABLET PO SCH (08:19)
[2018-05-28] MEDS: OLANZAPINE ZYDIS 5 MG TAB.RAPDIS PO SCH ×2 (08:19→16:55)
[2018-05-28] MEDS: glyBURIDE 5 MG TABLET PO SCH ×2 (08:19→17:07)
[2018-05-28] MEDS: CALCIUM CARB/VITAMIN D 600-400 MG TABLET PO SCH (08:19)
[2018-05-28] MEDS: LOSARTAN POTASSIUM 25 MG TABLET PO SCH (08:20)
[2018-05-28] MEDS: AMLODIPINE 10 MG TABLET PO SCH (08:20)
[2018-05-28] MEDS: DOCUSATE SODIUM 100 MG CAPSULE PO SCH ×2 (08:20→17:00)
--- NOTE | 2018-05-28 09:58 | NUR ---
DC Note: Patient will be discharging back to [facility] [[address], [place] [address]; ] via ambulance. Please arrange an ambulance for this patient. Spoke with Roopa at the facility who states they are ready to accept the patient back today. Spoke with patients father, Osmani Osorio Sr. ([phone]) who is aware and agreeable with discharge plans. Patient is alert and oriented x2-3 and is agreeable with discharge plans. Patient will follow-up at the facility with Dr. Conde ([employer]) and Dr. Omalley (Psychiatrist). Addendum: 05/28/18 at 1107 by AMINATA MILLER Additional Information: Patient will have bed 20-I at facility. Per facility small business sales representative, Roopa, they would like to receive patient after 5:00pm. Please arrange ambulance transportation for this patient at 4:00pm.
[2018-05-28 16:57] VITALS: BP 138/78
--- NOTE | 2018-05-28 17:18 | NUR ---
[address] [facility], SNF spoke with GERONIMO Mills- report given regarding patient will be dioscharged back to their facility. Rn informed regarding medications to continue upon hospital discharged, TMS provided -staff verbalized understanding.[id number] Discharged patient to facility mentioned above via ambulance, patient alert and ox2-3 , denies SI/FL. No delusion. No hallucination noted at the time of discharged.
== END 2018-05-28 17:15 | DRG 885 ==
LOC: GPSOV 17:44 → GPS 05-19 18:21
PROVIDERS: ADMIT Psychiatry & Neurology Psychiatry; ATTEND Internal Medicine
DX: F25.0 Schizoaffective disorder, bipolar type (principal); E11.65 Type 2 diabetes mellitus with hyperglycemia; E66.9 Obesity, unspecified; E05.90 Thyrotoxicosis, unspecified without thyrotoxic crisis or storm; F17.210 Nicotine dependence, cigarettes, uncomplicated; I10 Essential (primary) hypertension; E88.09 Other disorders of plasma-protein metabolism, not elsewhere classified; E78.1 Pure hyperglyceridemia; Z91.19 Patient's noncompliance with other medical treatment and regimen; Z68.38 Body mass index [BMI] 38.0-38.9, adult
CPT/HCPCS: 36415; 80164; 83735; 84100; 85025; J1815